=== PATIENT | female | born 1965 | race Caucasian/White ===

== ENCOUNTER 2024-07-28 20:27 | Inpatient (IN) | payer OTHER, SELFPAY ==
[2024-07-28 17:09] VITALS: BP 154/90
[2024-07-28 17:41] LABS: % Basophils 1.3 % (0-2); % Eosinophils 3.2 % (0-6); % Immature Granulocytes 0.2 % (0-0.5); % Lymphocytes 31.2 % (20.5-51.1); % Monocytes 10.9 % (1.7-9.3); % Neutrophils 53.2 % (42.2-75.2); Absolute Basophils 0.1 10^3/uL (0-0.2); Absolute Eosinophils 0.2 10^3/uL (0-0.7); Absolute Lymphocytes 1.9 10^3/uL (1.2-3.4); Absolute Monocytes 0.7 10^3/uL (0.1-0.6); Absolute Neutrophils 3.2 10^3/uL (1.4-6.5); Hematocrit 36.1 % (37.0-47.0); Hemoglobin 11.1 g/dL (12.0-16.0); Mean Corp Hgb Conc. 30.7 g/dL (33.0-37.0); Mean Corpuscular Hgb 24.8 pg (27.0-31.0); Mean Corpuscular Volume 80.8 fL (81.0-99.0); Mean Platelet Volume 9.5 fL (7.4-10.4); Nucleated Red Blood Cells % 0 %; Platelet Count 295 10^3/uL (130-400); Red Blood Cell Count 4.47 10^6/uL (4.20-5.40); Red Cell Dist. Width 16.7 % (11.5-14.5)
[2024-07-28 17:47] LABS: APTT 26.1 Sec (23.4-35.0); INR 0.84
[2024-07-28 17:51] LABS: ALT (SGPT) 38 U/L (0-35); AST (SGOT) 39 U/L (14-36); Albumin 4.2 g/dl (3.5-5.0); Alkaline Phosphatase 92 U/L (38-126); Blood Urea Nitrogen 16 mg/dl (7-17); Calcium 9.1 mg/dl (8.4-10.2); Carbon Dioxide 26 mmol/L (22-30); Chloride 108 mmol/L (98-107); Glucose 92 mg/dl (70-99); Potassium 4.6 mmol/L (3.5-5.1); Sodium 139 mmol/L (135-145); Total Bilirubin 0.4 mg/dl (0.2-1.3); Total Protein 6.9 g/dl (6.3-8.2); eGFR > 60.00
[2024-07-28 17:54] LABS: Lipase 193 U/L (23-300)
[2024-07-28 18:17] VITALS: BMI 27.4
--- NOTE | 2024-07-28 18:47 | ED.GENMED ---
History of Present Illness
General
Chief Complaint: Vomiting Blood
Source: patient
Exam Limitations: none
Time Seen by Provider: 07/28/24 18:34
Nursing documentation reviewed up to this point in time: agreed with
History of Present Illness
History of Present Illness:
59-year-old female presents to the emergency department complaining of vomiting large amount of bright red blood multiple times. She denies any pain or other symptoms. She has not taken blood thinner. She states she has not drank alcohol in 17
years.
Past History
Past History
ED Past Medical History: Psychiatric (Bipolar)
ED Past Surgical History: Other (bowel obstruction)
Social History
Tobacco: Smoker
Alcohol: None
Drug: None
Review of Systems
Review of Systems
Allergies reviewed?: Yes
All Other Systems: Not applicable
Constitutional: Reports no symptoms
EENT: Reports no symptoms
Respiratory: Reports no symptoms
Cardiac: Reports no symptoms
ABD/GI: Reports vomiting and other (Hematemesis)
: Reports no symptoms
Musculoskeletal: Reports no symptoms
Skin: Reports no symptoms
Neurological: Reports no symptoms
Endocrine: Reports no symptoms
Hematologic/Lymphatic: Reports no symptoms
Psychiatric: Reports no symptoms
Phy Exam
Physical Exam
Physical Exam:
Physical Exam
General: no apparent distress, not acutely ill
Neck: supple. no meningeal signs. normal posterior pharynx
Heart: s1/s2 regular rate and rhythm, no murmur. equal radial
pulses.
HEENT: Pupils equal round reactive to light, EOMI
Lungs: no acute respiratory distress. clear bilaterally
Abdomen: normal bowel sounds. not tender. no CVAT
Neuro: alert and oriented. no focal neurological deficits cranial nerves II through XII intact
Skin: no rash
Psychiatric: well kept. interactive and cooperative
Extremities: no edema. no calf tenderness. negative homans. good distal pulses
Course
Orders/Labs/Results
Orders:
Orders
07/28/24 17:28
Complete Blood Count/With Diff Urgent
Comprehensive Metabolic Panel Urgent
Lipase Urgent
PT/INR [Prothrombin Time] Urgent
PTT Urgent
07/28/24 18:46
Pantoprazole [Protonix IV] 80 mg IV NOW STA
07/28/24 18:47
Lactated Ringers 500mL Bolus Lactated Ringers [Lr] 500 ml IV BOLUS
Abnormal Lab Results
07/28/24
17:28
Hgb 11.1 L g/dL
(12.0-16.0)
Hct 36.1 L %
(37.0-47.0)
MCV 80.8 L fL
(81.0-99.0)
MCH 24.8 L pg
(27.0-31.0)
MCHC 30.7 L g/dL
(33.0-37.0)
RDW 16.7 H %
(11.5-14.5)
Absolute Monos (auto) 0.7 H 10^3/uL
(0.1-0.6)
Monocytes % 10.9 H %
(1.7-9.3)
Chloride 108 H mmol/L
(98-107)
AST 39 H U/L
(14-36)
ALT 38 H U/L
(0-35)
07/28/24 17:28
07/28/24 17:28
Vital Signs
Initial and Last Documented VS:
Initial Vital Signs
Temp Pulse Resp BP Pulse Ox
98.1 F 86 18 154/90 100
07/28/24 17:09 07/28/24 17:09 07/28/24 17:09 07/28/24 17:09 07/28/24 17:09
Last Documented Vital Signs
Temp Pulse Resp BP Pulse Ox
98.1 F 86 18 154/90 100
07/28/24 17:09 07/28/24 17:09 07/28/24 17:09 07/28/24 17:09 07/28/24 17:09
MDM/Problems Addressed
Differential Diagnosis Includes:
Upper GI bleed
MDM/Problems Addressed:
59-year-old female with vomiting, concern for upper GI bleed. IV Protonix given. IV fluids given. Admit to hospitalist for further workup.
*Pulse Oximetry
Patient hypoxic: no
*Critical Care Note
Total Time (30-74mins, 75-104mins- exclusive of procedures): Not Applicable
Patient Management
Social determinants of health affecting care: Substance abuse (Tobacco)
Discussion with other providers: Hospitalist
Escalation/DeEscalation of care consider admission/obs:
Admit indicated
ED Attending Note
-
Portions of this chart may have been created with voice recognition software.� Occasional wrong word or��sound alike� substitutions may have occurred due to the inherent limitations of voice recognition software.
Discharge Plan
Departure
Patient Disposition: Admit
Date of Disposition: 07/28/24
Time of Disposition: 18:52
Admit to: Telemetry
Presentation/result/management discussed w/ accepting MD/DO: Hospitalist
Patient with high blood pressure during this ER visit?: Yes
Condition: Good
Discharge Problem:
Acute upper gastrointestinal bleeding
Prescriptions:
No Action
psyllium husk [Metamucil Fiber Singles] 1 PACKET powder in packet
1 packet PO DAILY Qty: 30 0RF
polyethylene glycol 3350 17 GRAMS powder in packet
17 grams PO DAILY Qty: 30 0RF
Interventions
Interventions:
*Risk Screen - Suicide Last Done: 07/28/24 17:09
*General Assessment Last Done: 07/28/24 17:09
*Neglect/Abuse Screening Last Done: 07/28/24 17:09
*ED- Fall Risk Assessment Last Done: 07/28/24 18:17
*ED COVID-19 Vaccine History Last Done: 07/28/24 17:09
LU-Gadqfg-Ehaajxgvdc Assessment Last Done: 07/28/24 18:17
ED- Cardiac Assessment Last Done: 07/28/24 18:17
ED- Pulmonary Assessment Last Done: 07/28/24 18:17
Discharge Date and Time
Print Language: BELARUSIAN
--- NOTE | 2024-07-28 19:07 | HPS.HSE ---
Family Physician
-
Family Physician:
Chief Complaint
-
Vomiting bright red blood, indigestion this past week
History of Present Illness
59-year-old female complaining of vomiting large amounts of bright red blood multiple times today after eating a sandwich at around 3 PM. She reports increased acid reflux this past week several days ago she had some pressure across her chest that
resolved. She has not had any vomiting while in the ER. She denies aspirin or NSAID use. She reports she used to be an alcoholic drink large amounts of tequila and rum but has been sober for the past 12 years. She states she has had history of
endoscopies has never been told she had varices. She had an EGD 5 years ago showing a gastric ulcer for which she took a PPI and Carafate. She also gets routine colonoscopies secondary to benign polyps and family history of father from
colon cancer at age 53. She denies headache, fever, chills, sore throat, chest pain, palpitations, cough, shortness of breath, diarrhea, rash, urinary symptoms negative black stools. She has past medical history of active smoker, COPD, former
alcoholic quit 12 years ago, bipolar disorder,
Bowel perforation with sepsis in her 20s, seasonal allergies
Medical History
Past Medical History
Past Medical History: Reports Other
Additional Past Medical History:
active smoker
COPD
former alcoholic quit 12 years ago
Gastric ulcer 5 years ago via EGD
bipolar disorder
Bowel perforation with sepsis in her 20s,
seasonal allergies
Past Surgical History: Reports Other
Additional Past Surgical History:
Bowel perforation with sepsis in her 20s,
Tonsillectomy
Cholecystectomy
Social History
Tobacco: Smoker
Alcohol: Former (Prior alcohol abuse tequila or ROM stopped drinking heavily 12 years ago)
Drug: None
Personal: Single
Employment: Employed ([employer])
Family History
Family History: Other (Father age 55 colon cancer mother age 63 renal disease, DM 2, 1 brother alcohol abuse 4 sisters 1 with juvenile arthritis 1 with Augusta's 1 with lupus other 2 brothers 1 with colitis)
Allergies / Home Medications
Allergies reflects when Allergies were last updated in [employer] [facility].
Home Medications with original date entered in [employer]
Allergy/Medication List:
Allergies
Allergy/AdvReac Type Severity Reaction Status Date / Time
No Known Allergies Allergy Verified 07/28/24 17:13
Home Medications
budesonide-formoterol HFA 160 mcg-4.5 mcg/actuation aerosol inhaler (Symbicort) 2 puff inhalation R BID 07/28/24
cyanocobalamin (vitamin B-12) 1,000 mcg tablet 1,000 mcg PO DAILYPRN PRN leg cramps 07/28/24
levocetirizine 5 mg tablet (Xyzal) 5 mg PO DAILYPRN PRN cough 07/28/24
magnesium oxide 400 mg PO DAILYPRN PRN leg cramps 07/28/24
Review of Systems
-
History Source: Patient
A 12 point ROS was completed and negative except as noted: Yes
Constitutional: Reports Fatigue; Denies Fever or Chills
EENT: Denies Sore Throat or Runny Nose
Respiratory: Denies Cough or Trouble Breathing
Cardiac: Denies Chest Pain, Diaphoresis, Palpitations or Syncope
Abdomen/GI: Reports Vomiting (Bright red blood today at 3 PM); Denies Abdominal Pain, Nausea, Diarrhea, Constipated, Bloody Stools or Black Stools
: Denies Dysuria, Frequency, Flank Pain, Incontinence or Difficulty Voiding
Musculoskeletal: Denies Joint Pain or Edema
Skin: Denies Itching or Rash
Neurological: Denies Dizzy, Headache or Weakness
Endocrine: Reports No Symptoms
Hematologic/Lymphatic: Reports No Symptoms
Psych: Reports Calm
Physical Exam
Vital Signs
Vital Signs
Temp Pulse Resp BP Pulse Ox
98.1 F 86 18 154/90 100
07/28/24 17:09 07/28/24 17:09 07/28/24 17:09 07/28/24 17:09 07/28/24 17:09
Physical Exam
General: Comfortable and Conversant; No Fever or Chills
HEENT: NormoCephalic, Anicteric, Moist mucous membranes, PERRLA, [place] Conjunctivae and No Ptosis
Respiratory: Clear; No Wheezes, Rales or Rhonchi
Cardiac: S1/S2 and Regular Rhythm; No Murmur, Rub, Gallop or Peripheral Edema
Breast: Deferred by me
GI: Soft, Non Tender, Non Distended, Normal Bowel Sounds and No Hepatosplenomegaly
Rectal: Deferred by Provider
Genito-urinary: Deferred by me
Musculoskeletal: No Clubbing, No Cyanosis and No Edema
Skin: Warm and Dry; No Rash or Jaundice
Neuro: AO x 3, No Motor Deficits, Nonfocal/grossly intact, Cranial Nerves Intact and No Sensory Deficits; No Slurred Speech, Facial Droop, Tremors or Sedated
Psych: Calm
Laboratory Results
-
07/28/24 17:28
07/28/24 17:28
Laboratory Results
PT 12.0 Sec (11.4-14.6) 07/28/24 17:28
INR 0.84 07/28/24 17:
APTT 26.1 Sec (23.4-35.0) 07/28/24 17:28
Total Bilirubin 0.4 mg/dl (0.2-1.3) 07/28/24 17:28
AST 39 U/L (14-36) H 07/28/24 17:28
ALT 38 U/L (0-35) H 07/28/24 17:28
Alkaline Phosphatase 92 U/L (38-126) 07/28/24 17:28
Lipase 193 U/L (23-300) 07/28/24 17:28
Data Reviewed
-
Lab Data: Labs Reviewed by me
Impression/Plan
-
Impression/plan:
Admit to telemetry
#Acute upper GI bleed concern for ulcer vs Bina-Fermin vs varices
#Hx GASTRIC Ulcer 5 years via EG
-Obtain blood consent, type and screen
Hgb 11.1
-Check H&H every 8 hours
-IV Protonix gtt
-Consult GI
-N.p.o.
-Stool occult
-No NSAIDs or aspirin
-IV Zofran as needed
-Follow CBC, BMP
#Former alcoholic
Stopped drinking tequila and rum 12 years ago
#Bipolar disorder
-No current medication
#COPD�no acute exacerbation
#Active smoker
-Cessation advised
-Continue Symbicort
#Hx perforated bowel with sepsis in her 20s
#History of colonic polyps
-Gets colonoscopies every 2 to 3 years due to benign polyps but family history father colon cancer age 55
#Seasonal allergies
-Patient takes Xyzal as needed
DVT prophylaxis
SCDs
Full code
[2024-07-28 19:12] VITALS: BP 120/66
[2024-07-28] MEDS: PROTONIX IV 80 MG IV (19:15)
[2024-07-28] MEDS: LR 500 IV (19:15)
[2024-07-28 20:00] VITALS: BP 40/22
[2024-07-28 20:20] VITALS: BP 131/71
--- NOTE | 2024-07-28 20:25 | W.PN.UPDATE ---
Update Note
Progress Note Update
Patient seen in conjunction with BEE. I agree the findings and physical. I concur with assessment and plan.
This is a 59-year-old with past medical history significant for peptic ulcer disease status post EGD 5 years ago showing a nonbleeding ulcer at that time, history of alcohol dependence and she quit alcohol 12 years ago, no known history of
cirrhosis, ascites or varices who presents to the emergency department with acute episode of hematemesis.
Patient reports having feeling nausea during the day. She ate a sandwich and then vomited nonbloody nonbilious materials x 2. She then had additional a nauseous episode and then vomited bright red blood. She states it was a large amount. She did
not see any clots and denies seeing any coffee-ground material. She was not having any severe abdominal pain at this episode. She reported that about a week ago she had some tightness in her chest which she did not describe as a pain. She denies
any recent coughing. She denies retching. She denies feeling dizzy or lightheaded. She denies seeing any recent melena. Patient reports chronic constipation and she has had multiple colonoscopies in the past showing some polyps but otherwise no
other abdominal findings. History is notable for a prior episode of abdominal surgery secondary to perforated bowel several years ago.
On arrival in the Emergency Department she was afebrile, blood pressure was initially 154/90 currently 131/71, pulse was 86 she was satting 98% on room air. CBC shows a hemoglobin of 11.1 with MCV of 80. Electrolytes BUN/creatinine were actually
normal at this time. LFTs shows no significant abnormalities. Lipase was normal. She does not have any right upper quadrant tenderness.
Assessment and plan
Acute episode of hematemesis concerning for upper GI bleed. Given history of peptic ulcer outpatient and possibly has a bleeding ulcer versus Bina-Fermin tear. Unlikely variceal bleeding. No possible blood appearing intake per patient. Given
concern for acute large-volume GI bleed we will admit the patient to telemetry at this time.
She is hemodynamically stable currently,
type and screen,
H&H every 8,
started on Protonix bolus and then continuous drip for now.
Guaiac all stool.
Clear liquid until midnight then NPO.
GI consultation.
DVT prophylaxis with SCDs at this time.
Code status - Full Code
[2024-07-28] MEDS: PROTONIX 100 IV (20:53)
[2024-07-28 21:12] VITALS: BP 122/78; BMI 26.4
--- NOTE | 2024-07-28 21:12 | PTCARENOTE ---
Pt arrived from the ED via stretcher and ambulated to bed. Pt is AAOX3, VSS, and w/o complaints of pain. Pt is oriented to unit, with the call barron within reach.
[2024-07-28 23:00] VITALS: BP 118/72
[2024-07-29 02:03] LABS: % Eosinophils 4.4 % (0-6); % Immature Granulocytes 0.1 % (0-0.5); % Lymphocytes 44.7 % (20.5-51.1); % Monocytes 10.3 % (1.7-9.3); % Neutrophils 39.5 % (42.2-75.2); Absolute Basophils 0.1 10^3/uL (0-0.2); Absolute Eosinophils 0.3 10^3/uL (0-0.7); Absolute Monocytes 0.7 10^3/uL (0.1-0.6); Absolute Neutrophils 2.7 10^3/uL (1.4-6.5); Hematocrit 33.9 % (37.0-47.0); Hemoglobin 10.4 g/dL (12.0-16.0); Mean Corp Hgb Conc. 30.7 g/dL (33.0-37.0); Mean Corpuscular Hgb 24.2 pg (27.0-31.0); Mean Platelet Volume 9.5 fL (7.4-10.4); Nucleated Red Blood Cells % 0 %; Platelet Count 271 10^3/uL (130-400); Red Blood Cell Count 4.29 10^6/uL (4.20-5.40); Red Cell Dist. Width 16.6 % (11.5-14.5); White Blood Cell Count 6.8 10^3/uL (4.8-10.8)
[2024-07-29 02:07] LABS: Blood Urea Nitrogen 13 mg/dl (7-17); Calcium 9.2 mg/dl (8.4-10.2); Carbon Dioxide 29 mmol/L (22-30); Chloride 110 mmol/L (98-107); Estimated Creatinine Clearance 101 ml/min; Glucose 90 mg/dl (70-99); Potassium 4.1 mmol/L (3.5-5.1); Sodium 140 mmol/L (135-145); eGFR > 60.00
[2024-07-29 07:00] VITALS: BP 131/76
--- NOTE | 2024-07-29 07:02 | CON.GI ---
Consultation
-
Date/Time Consultation Performed: 07/29/24
Performing Provider: Vega Cole MD
Reason for Consultation: hematemesis
Medical History
Chief Complaint / HPI
Chief Complaint: hematemesis
History of Present Illness:
The patient is a 59-year-old female with past medical history as noted with hematemesis. She states that for the past week or 2 leading up to that she been having some chest discomfort, consistent with heartburn. Yesterday after eating a sandwich
she developed sudden onset of nausea and vomiting, initially vomiting undigested food though after couple of times then vomited bright red blood. Since then she has been feeling okay, denies any lightheadedness, dizziness, has had no further
episodes of vomiting, no melena. She denies any abdominal pain. She denies any recent NSAIDs. She does have history of a duodenal ulcer 5 years ago and has seen Dr. Carroll in [facility], as she alternates from access hospital [place] and [place]. She is
been doing well otherwise medically, with no alcohol for more than 10 years, no reports of cirrhosis. Currently she is feeling well, denies any chest pain or shortness of breath, lightheadedness or dizziness.
Past Medical History
Past Medical History: Other (Duodenal ulcer in the past, previous alcohol use, bipolar, allergies, bowel perforation with sepsis 30 years ago.)
Past Surgical History: Other (Tonsillectomy, cholecystectomy, bowel surgery, unclear if head resection.)
Social History
Tobacco: Smoker
Alcohol: Former
Family History
Family History: Reviewed & Not Pertinent
Allergies / Home Medications
Allergy/AdvReac Type Severity Reaction Status Date / Time
No Known Allergies Allergy Verified 07/28/24 17:13
�Medication �Instructions �Recorded
budesonide-formoterol HFA 160 2 puff inhalation R BID 07/28/24
mcg-4.5 mcg/actuation aerosol
inhaler (Symbicort)
cyanocobalamin (vitamin B-12) 1,000 mcg PO DAILYPRN PRN leg 07/28/24
1,000 mcg tablet cramps
levocetirizine 5 mg tablet (Xyzal) 5 mg PO DAILYPRN PRN cough 07/28/24
magnesium oxide 400 mg PO DAILYPRN PRN leg cramps 07/28/24
Review of Systems
-
All other systems: A 12 pt ROS was Negative except as stated above in HPI
Vital Signs
Temp Pulse Resp BP Pulse Ox
97.7 F 68 16 118/72 94
07/28/24 23:00 07/28/24 23:00 07/28/24 23:00 07/28/24 23:00 07/28/24 23:00
Physical Exam
Exam
General: NAD
HEENT: MMM, anicteric, no lymphadenopathy
Heart: Regular, no murmurs
Lungs: CTA bilaterally
Abdomen: normal bowel sounds, soft, no tenderness, no rebound or guarding, no masses, bruits or ascites
Extremeties: no edema
Skin: no rashes
Results
WBC 6.8 10^3/uL (4.8-10.8) 07/29/24 01:10
Hgb 10.4 g/dL (12.0-16.0) L 07/29/24 01:10
Hgb Cancelled 07/29/24 01:10
Hct 33.9 % (37.0-47.0) L 07/29/24 01:10
Hct Cancelled 07/29/24 01:10
MCV 79.0 fL (81.0-99.0) L 07/29/24 01:10
Plt Count 271 10^3/uL (130-400) 07/29/24 01:10
Absolute Neuts (auto) 2.7 10^3/uL (1.4-6.5) 07/29/24 01:10
PT 12.0 Sec (11.4-14.6) 07/28/24 17:28
INR 0.84 07/28/24 17:28
APTT 26.1 Sec (23.4-35.0) 07/28/24 17:28
Sodium 140 mmol/L (135-145) 07/29/24 01:10
Potassium 4.1 mmol/L (3.5-5.1) 07/29/24 01:10
Chloride 110 mmol/L (98-107) H 07/29/24 01:10
Carbon Dioxide 29 mmol/L (22-30) 07/29/24 01:10
BUN 13 mg/dl (7-17) 07/29/24 01:10
Creatinine 0.6 mg/dL (0.6-1.0) 07/29/24 01:10
Calcium 9.2 mg/dl (8.4-10.2) 07/29/24 01:10
Total Bilirubin 0.4 mg/dl (0.2-1.3) 07/28/24 17:28
AST 39 U/L (14-36) H 07/28/24 17:28
ALT 38 U/L (0-35) H 07/28/24 17:28
Alkaline Phosphatase 92 U/L (38-126) 07/28/24 17:28
Lipase 193 U/L (23-300) 07/28/24 17:28
Diagnostic Image Results:
Prior GI Procedures:
EGD:
Colonoscopy:
Assessment / Plan
-
1. Hematemesis: Likely Bina-Fermin tear given her history, possibly some underlying esophagitis given the symptoms leading up to this. She does have a history of duodenal ulcer in the past, though denies any extraneous NSAIDs. Currently she is
hemodynamically stable, without signs of brisk active bleeding. Will continue PPI, IV fluids, await morning labs and plan EGD today.
-
-
Thank you for consultation and allowing me to participate in the patient's care. Please call the director industrial relations GI physician during the after hours with any questions or concerns.
--- NOTE | 2024-07-29 07:13 | W.PN.HOSP.TC ---
Addendum entered and electronically signed by Gio Colorado MD 08/01/24 11:16:
Acute Blood Loss Anemia
Addendum entered and electronically signed by Gio Colorado MD 07/29/24 15:21:
This is an outpatient post surgical recovery admission
Original Note:
Today's Communication/Plan
-
Discharge today
Assessment / Plan
Assessment / Plan
Physical Exam
General: Not in acute distress
HEENT: Normocephalic
Respiratory: Clear to Auscultation Bilaterally
Cardiac: S1/S2 and Regular Rhythm
GI: Soft, Non Tender, Non Distended, Normal Bowel Sounds
Musculoskeletal: No Cyanosis and No Edema
Skin: Warm and Dry
Neuro: AO x 3, No Motor Deficits, Nonfocal/grossly intact, Cranial Nerves Intact and No Sensory Deficits; No Slurred Speech, Facial Droop, Tremors or Sedated
Psych: Calm
Assessment/Plan
59-year-old female with past medical history significant for peptic ulcer disease status post EGD 5 years ago showing a nonbleeding ulcer at that time, history of alcohol dependence and she quit alcohol 12 years ago, no known history of cirrhosis,
ascites or varices who presents to the emergency department with acute episode of hematemesis.
Patient reports feeling nausea during the day of presentation; she had eaten a sandwich and then vomited nonbloody nonbilious materials x 2. She then had an additional nauseous episode and then vomited bright red blood. She states it was a large
amount. She did not see any clots and denies seeing any coffee-ground material. She was not having any severe abdominal pain during this. She reported that about a week prior she had some tightness in her chest which she did not describe as a
pain. She denies any recent coughing. She denied retching. She denied feeling dizzy or lightheaded. She denied seeing any recent melena. Patient reported chronic constipation and she has had multiple colonoscopies in the past showing some
polyps but otherwise no other abdominal findings. History is notable for a prior episode of abdominal surgery secondary to perforated bowel years ago.
On arrival in the Emergency Department she was afebrile, blood pressure was initially 154/90, pulse was 86 she was saturating oxygen 98% on room air. CBC showed a hemoglobin of 11.1 with MCV of 80. Electrolytes BUN/creatinine were actually normal
initially. LFTs initially showed no significant abnormalities. Lipase was normal. She did not have any right upper quadrant tenderness.

#Presentation with hematemesis x 2, mild abdominal pain -- concern for ulcer vs Bina-Fermin vs less likely varices
#H/O gastric/duodenal ulcer/peptic ulcer via EGD 5 years ago
#Bina-Fermin tear
-Denies recent melena. Negative rectal here.
-Monitor vital signs
-Type and screen obtained
-Hgb stable
-Protonix Bolus followed by IV Protonix gtt
-Consult GI
-MW tear on EGD
-Follow up with
primary gastrotenterologist for repeat EGD in 8 weeks
-No NSAIDs or aspirin
-Follow CBC, BMP
-Monitor on telemetry
#h/o etoh but no known cirrhosis, ascites or h/o varices
#Former alcoholic
Stopped drinking tequila and rum 12 years ago
#Bipolar disorder
-No current medication
#COPD�no acute exacerbation
#Active smoker
-Cessation advised
-Continue Symbicort
#History of chronic constipation
#Hx perforated bowel with sepsis in her 20s
#History of colonic polyps
-Gets colonoscopies every 2 to 3 years due to benign polyps but family history father colon cancer age 55
#Seasonal allergies
-Patient takes Xyzal as needed
DVT prophylaxis: SCDs only
Full code
More than 30 minutes spent in discharge including
Final examination of the patient
Summarizing hospital stay
Instructions for continuing care to all relevant caregivers
Preparation of discharge records, prescriptions, and referral forms
Total time spent (in minutes): 38
Anticipated Discharge: Today
Subjective/Interval History
-
Date of Service: July 29, 2024
Patient was seen and examined. She denied any symptoms or complaints.
Objective Data
-
Labs:
Laboratory Results
07/29/24 07/29/24 07/29/24
01:10 01:10 01:10
WBC 6.8
Hgb Cancelled 10.4 L
Hct Cancelled 33.9 L
Plt Count 271
Sodium 140
Potassium 4.1
Chloride 110 H
Carbon Dioxide 29
BUN 13
Creatinine 0.6
Glucose 90
Calcium 9.2
07/29/24 07/29/24
09:00 17:00
WBC
Hgb Pending Pending
Hct Pending Pending
Plt Count
Sodium
Potassium
Chloride
Carbon Dioxide
BUN
Creatinine
Glucose
Calcium
Vital Signs:
Vital Signs
Temp Pulse Resp BP Pulse Ox
97.7 F 68 16 118/72 94
07/28/24 23:00 07/28/24 23:00 07/28/24 23:00 07/28/24 23:00 07/28/24 23:00
I&O
07/28/24 07/29/24 07/30/24
06:59 06:59 06:59
Intake Total 480 / 480
Balance 480 / 480
[2024-07-29] MEDS: PROTONIX IV 40 MG IV (08:25)
[2024-07-29] MEDS: NSS 1000 IV (08:27)
[2024-07-29] MEDS: NSS (PRESERVATIVE FREE) 10 ML IV (08:38)
[2024-07-29 08:55] LABS: Hematocrit 34.9 % (37.0-47.0)
[2024-07-29 11:00] VITALS: BP 108/61; BP_SYST 16
[2024-07-29 11:01] VITALS: BP 108/61
[2024-07-29 11:13] VITALS: BP 108/61; BP_SYST 16
[2024-07-29 11:15] VITALS: BP 98/56
[2024-07-29 14:05] VITALS: BP 135/79
--- NOTE | 2024-07-29 14:11 | W.DCSUMMARY ---
Discharge Summary
Discharge Data
Date of Admission: 07/28/24
Date of Discharge: 07/29/24
Total time spent discharging patient (in min): 38
-
Pending Results: No
Hospital Course
59 y/o female with past medical history of peptic ulcer disease and alcohol dependence (quit ~12 years prior), presented with acute vomiting up blood. She was noted to be hemodynamically stable on admission. Patient was started on Protonix Bolus and
Protonix Drip. Gastroenterology was consulted. On July 29, 2024, patient had an upper endoscopy which showed Bina-Fermin tear, Cinthia-en-Y gastrojejunostomy with gastrojejunal anastomosis characterized by healthy appearing mucosa, Indented area in
the gastric cardia/fundus with some nearby distorted anatomy -- it was unclear whether this was suture material versus a small clot, though there was no change with irrigation. Patient was discharged on twice daily proton pump inhibitor, with
follow-up with their primary guest services lead for repeat EGD in 8 weeks.
Discharge Plan
-
Patient Disposition: Home (Routine Discharge)
Discharge Diagnosis/Procedures: Bina-Fermin tear with associated acute blood loss anemia
Cinthia-en-Y gastrojejunostomy with gastrojejunal anastomosis characterized by healthy appearing mucosa.
Indented area in the fundus
Presentation with hematemesis x 2, mild abdominal pain -- concern for ulcer vs Bina-Fermin vs less likely varices
History of gastric/duodenal ulcer/peptic ulcer via EGD 5 years ago
History of alcohol use but no known cirrhosis, ascites or history of varices
Former alcoholic
Bipolar disorder
COPD�no acute exacerbation
Active smoker
History of chronic constipation
History of perforated bowel with sepsis
History of colonic polyps
Seasonal allergies
Condition: Good
Diet: As tolerated
Activity Restrictions/Additional Instructions:
Follow up with your primary guest services lead for repeat EGD in 8 weeks
Referrals:
Bijal Ba MD [Family Provider] -
Additional Discharge Medication Instructions: Pantoprazole is a new medication -- ask guest services lead how long you should take this medication.
Prescriptions:
New
pantoprazole 40 mg tablet,delayed release (DR/EC)
40 mg PO BID Qty: 60 1RF
Continued
cyanocobalamin (vitamin B-12) 1,000 mcg Tablet
1,000 mcg PO DAILYPRN PRN (Reason: leg cramps)
budesonide-formoterol [Symbicort] 160-4.5 mcg/actuation Hfa Aerosol Inhaler
2 puff INHALATION R BID
levocetirizine [Xyzal] 5 mg Tablet
5 mg PO DAILYPRN PRN (Reason: cough)
magnesium oxide 400 mg magnesium Tablet
400 mg PO DAILYPRN PRN (Reason: leg cramps)
Discharge Orders:
Discharge Patient (As Directed); Ordered 07/29/24
Ordered By: Gio [place]
Discharge Date and Time
Discharge Date/Time: 07/29/24 14:25
Print Language: [place]
--- NOTE | 2024-07-29 14:12 | CM ---
Patient seen bedside.
Patient with bleeding from arm when CM entered the room.
Patient discontinued her INT as she wants to leave and is waiting on d/c instruction.
Nursing updated.
Patient lives with uncle in a 1 story home.
Patient independent and drives.
IMM completed.
PCP: Jes[facility]
Pharmacy: [facility]
Plan: home, drove herself.
--- NOTE | 2024-07-29 14:14 | PTCARENOTE ---
Pt demanding to be discharged bc GI said she could leave if she tolerated diet. Pt pulled out her own IV. She threatened to leave AMA. I contacted physician and he put in the discharge. I told the pt it would be 10 minutes and she could leave. I
obtained her vitals and she did not wait, she left without AMA or discharge docs.
--- NOTE | 2024-07-29 14:46 | PN.CDI ---
CDI
- -
CDI:
Physician Documentation Request
Admit Date: 07/28/24 20:27
Dear Doctor Stanislav,
Clinical Indicators:
Patient admitted with hematemesis.
07/28 H & P, '59-year-old female complaining of vomiting large amounts of bright red blood multiple times today...'
07/29 EGD: 'Symptoms still more consistent with MW tear...'
Hgb/Hct trend:
07/28/24 07/29/24 07/29/24
17: 01:10 08:44
Hgb 11.1 L 10.4 L 11.0 L
Hct 36.1 L 33.9 L 34.9 L
Based on the above, could you clarify in the progress notes, the appropriate diagnosis, if significant, that supports the above abnormalities and additional evaluation, monitoring and/or treatment rendered:
Acute blood loss anemia
Anemia, other type; please specify
Abnormal lab value, clinically insignificant
Other, please specify
Use of terms such as suspected, likely, concern for, or probable (associated with a specific diagnosis that is being evaluated, monitored, or treated as if it exists) are acceptable and can be coded in the inpatient setting, when documented at the
time of discharge.
Thank you,
Lyssa Oh RN BSN
CDI Specialist
available via tiger text
Please use your independent medical judgment in providing your response.
== END 2024-07-29 14:25 | disposition home or self-care (01) | DRG 369 ==
LOC: 4 EAST ACU 20:27
PROVIDERS: Clinical Nurse Specialist Family Health; Student in an Organized Health Care Education/Training Program; ADMITTING PHYSICIAN Internal Medicine; ATTENDING PHYSICIAN Hospitalist; CONSULT PHYSICIAN Internal Medicine Gastroenterology; EMERGENCY PHYSICIAN Emergency Medicine; FAMILY PHYSICIAN Emergency Medicine
PROC: 0DJ08ZZ Inspection of Upper Intestinal Tract, Via Natural or Artificial Opening Endoscopic (ICD-10-PCS; 2024-07-29)
DX: K22.6 Gastro-esophageal laceration-hemorrhage syndrome (principal); D62 Acute posthemorrhagic anemia; K92.0 Hematemesis; J30.2 Other seasonal allergic rhinitis; F31.9 Bipolar disorder, unspecified; J44.9 Chronic obstructive pulmonary disease, unspecified; K25.9 Gastric ulcer, unspecified as acute or chronic, without hemorrhage or perforation; F10.21 Alcohol dependence, in remission; F17.200 Nicotine dependence, unspecified, uncomplicated; Z87.19 Personal history of other diseases of the digestive system; Z87.11 Personal history of peptic ulcer disease; Z80.0 Family history of malignant neoplasm of digestive organs; Z83.3 Family history of diabetes mellitus; Z81.1 Family history of alcohol abuse and dependence; Z83.49 Family history of other endocrine, nutritional and metabolic diseases; Z86.0100 Personal history of colon polyps, unspecified; Z98.84 Bariatric surgery status
CPT/HCPCS: 80048; 80053; 83690; 85014; 85018; 85025; 85610; 85730; 86850; 86900; 86901; 96361; 96374; 99285